=== PATIENT | female | born 1970 | race Caucasian/White ===

== ENCOUNTER 2021-05-04 00:48 | Day surgery (SDC) | payer OTHER, SELFPAY ==
[2021-04-20 14:18] VITALS: BMI 34.8
--- NOTE | 2021-05-03 13:58 | PM.HPGS ---
History of Present Illness History of Present Illness Consent: Risks, benefits, and alternatives have been discussed and questions answered. Patient agrees to proceed with procedure. Chief complaint: neoplasm screening Narrative: Tejal Corona is a 51 year old female referred for colon cancer screening Review of Systems Review of Systems: All systems reviewed & are unremarkable except as noted in HPI and below PMFSH Past Medical History Medical History COVID-19 Marital dysfunction Obesity (BMI 30.0-34.9) Surgical History Surgical History H/O lumpectomy 2017 History of right hip replacement 2011 Family History Family History Father Hypertension Family history of elevated blood lipids Family history of pancreatic cancer Patient's father is , Onset Age: 53 Mother Hypertension Family history of arthritis Social History Social History Smoking packs per day: 0.5 Smoking cigarettes per day: 10.0 Years smoked: 30 Smoking pack-years: 15.00 Smoking status: Current every day smoker Tobacco type: cigarettes Alcohol intake: current Living arrangements: with family Spiritual care concerns: No Meds Home Medications and Allergies Home Medications Medication Instructions Recorded Confirmed Type cholecalciferol (vitamin D3) 50 2,000 unit PO DAILY 08/19/19 05/04/21 History mcg (2,000 unit) tablet meloxicam 15 mg tablet 15 mg PO DAILY #90 tablet 08/21/20 05/04/21 Rx anastrozole 1 mg tablet 1 mg PO DAILY 11/03/20 05/04/21 History escitalopram oxalate 20 mg tablet 20 mg PO DAILY #90 tablet 02/19/21 05/04/21 Rx biotin 5,000 mcg SUBLINGUAL DAILY 04/20/21 05/04/21 History melatonin 5 mg PO HS PRN 04/20/21 05/04/21 History Allergies Allergy/AdvReac Type Severity Reaction Status Date / Time No Known Allergies Allergy Verified 05/04/21 09:06 Exam Resp: Auscultation: clear to auscultation bilaterally Cardio: Rate: regular rate Rhythm: regular rhythm GI: GI Palp: Yes Soft to palpation and No Tenderness to palpation present (GI) Assessment and Plan Assessment and plan (1) Colon cancer screening: Code(s): Z12.11 - Encounter for screening for malignant neoplasm of colon Status: Acute Assessment and Plan: Colonoscopy with possible biopsy or polypectomy or cautery or injection of substances.
[2021-05-04 09:08] VITALS: BP 118/80; PULSE 66; RESP 20; TEMP 36.2; O2SAT 98
[2021-05-04] MEDS: LACTATED RINGERS 1,000 ML 150 ML IV CONT (09:19)
--- NOTE | 2021-05-04 09:37 | WPDANESEPPF ---
Anes - Initial Pre Proc Eval Procedure: Operation Date: 05/04/21 10:00 Proposed Procedures p Screening Colonoscopy - Rudi Richardson MD Date/Time: 05/04/21 09:37 Surgeon: Rudi Richardson MD Pre Op Diagnosis: neoplasm screening Patient Data Age: 51 Gender: F Height: 1.7 m Weight: 95 kg Last Vital Signs Temp 97.2 F L 05/04/21 09:08 Pulse 66 05/04/21 09:08 Resp 20 05/04/21 09:08 BP 118/80 05/04/21 09:08 Pulse Ox 98 05/04/21 09:08 Allergies Allergy/AdvReac Type Severity Reaction Status Date / Time No Known Allergies Allergy Verified 05/04/21 09:06 Home Medications Medication Instructions Recorded Confirmed Type cholecalciferol (vitamin D3) 50 2,000 unit PO DAILY 08/19/19 05/04/21 History mcg (2,000 unit) tablet meloxicam 15 mg tablet 15 mg PO DAILY #90 tablet 08/21/20 05/04/21 Rx anastrozole 1 mg tablet 1 mg PO DAILY 11/03/20 05/04/21 History escitalopram oxalate 20 mg tablet 20 mg PO DAILY #90 tablet 02/19/21 05/04/21 Rx biotin 5,000 mcg SUBLINGUAL DAILY 04/20/21 05/04/21 History melatonin 5 mg PO HS PRN 04/20/21 05/04/21 History Patient hx anesthesia problems: none Family hx anesthesia problems: none Results Review: All pre-operative results and documents have been reviewed as part of the pre-operative evaluation. [facility] Past Medical History Medical History COVID-19 Marital dysfunction Obesity (BMI 30.0-34.9) Surgical History Surgical History H/O lumpectomy 2017 History of right hip replacement 2011 Family History Family History Father Hypertension Family history of elevated blood lipids Family history of pancreatic cancer Patient's father is , Onset Age: 53 Mother Hypertension Family history of arthritis Social History Social History Smoking packs per day: 0.5 Smoking cigarettes per day: 10.0 Years smoked: 30 Smoking pack-years: 15.00 Smoking status: Current every day smoker Tobacco type: cigarettes Alcohol intake: current Living arrangements: with family Spiritual care concerns: No Anes - Eval Final PreProcedure Day of Procedure 05/04/21 09:37 Patient weight: obese Heart: regular rate and rhythm Lungs: clear to auscultation Airway: Mallampati scale class II Neurological: alert and oriented Last oral intake: >/= 8 hours ASA classification: III Emergent: no Anesthetic plan: proceed Anesthesia type and monitoring: general GIVS and standard monitoring Results Review: All pre-operative results and documents have been reviewed as part of the pre-operative evaluation. Informed Consent: The patient's anesthetic plan and its attendant risks and benefits were discussed with the patient/family/POA. Questions were solicited and answers provided to the satisfaction of the patient/family/POA.
[2021-05-04 10:08] VITALS: BP 106/58; PULSE 62; RESP 17; O2SAT 99
[2021-05-04 10:18] VITALS: BP 120/68; PULSE 56; RESP 14; O2SAT 100
[2021-05-04 10:28] VITALS: BP 125/79; PULSE 58; RESP 18; O2SAT 100
== END 2021-05-04 10:53 | disposition home or self-care (01) ==
PROVIDERS: PCP Family Medicine; Visit Provider Internal Medicine Gastroenterology
PROC: 0DJD8ZZ Inspection of Lower Intestinal Tract, Via Natural or Artificial Opening Endoscopic (ICD-10-PCS; CPT 45378; principal; 2021-05-04 10:00)
DX: Z12.11 Encounter for screening for malignant neoplasm of colon (principal); K64.4 Residual hemorrhoidal skin tags; K64.8 Other hemorrhoids; K57.30 Diverticulosis of large intestine without perforation or abscess without bleeding; Z86.16 Personal history of COVID-19; F17.210 Nicotine dependence, cigarettes, uncomplicated; E66.9 Obesity, unspecified; Z68.32 Body mass index [BMI] 32.0-32.9, adult
CPT/HCPCS: 45378; J2704; J7120

== ENCOUNTER 2022-11-04 06:44 | Day surgery (SDC) | payer OTHER, SELFPAY ==
[2022-10-15 11:09] VITALS: BMI 31.0
[2022-10-22 09:03] VITALS: BMI 31.4
--- NOTE | 2022-11-04 06:54 | PM.HPGS ---
History of Present Illness History of Present Illness Consent: Risks, benefits, and alternatives have been discussed and questions answered. Patient agrees to proceed with procedure. Chief complaint: Esophageal Obstruction Narrative: Tejal Corona is a 52 year old female With increasing dysphagia over the past few years. Solid food will get caught usually the 1st bite of a meal. She will need to wait to let it pass or sometimes vomit it back up. She denies having chronic heartburn. Her weight is stable Review of Systems Review of Systems: All systems reviewed & are unremarkable except as noted in HPI and below PMFSH Past Medical History Medical History COVID-19 Diabetes mellitus type 2, uncontrolled Esophageal stricture Generalized anxiety disorder HTN (hypertension), benign Marital dysfunction Mixed hyperlipidemia Nicotine dependence, unspecified, uncomplicated Obesity (BMI 30.0-34.9) Surgical History Surgical History H/O lumpectomy 2017 History of right hip replacement 2011 Family History Family History Father Hypertension Family history of elevated blood lipids Family history of pancreatic cancer Patient's father is , Onset Age: 53 Mother Hypertension Family history of arthritis Social History Social History Smoking packs per day: 0.5 Smoking cigarettes per day: 10.0 Years smoked: 30 Smoking pack-years: 15.00 Smoking status: Current every day smoker Tobacco type: cigarettes Alcohol intake: current Drinks per week: 2 Substance use: never Substance use type: does not use Lack of Transportation: No Lack of Food: Never True Current Housing: I Have Housing Concerned About Future Housing: No Difficulty Paying Gas/Electric Bills: No Difficulty Paying for Meds: No Currently Unemployed: No Education: Bachelor's Degree Difficulty w/ Childcare or Family Care: No Living arrangements: with family Spiritual care concerns: No Meds Home Medications and Allergies Home Medications Medication Instructions Recorded Confirmed Type cholecalciferol (vitamin D3) 50 2,000 unit PO HS 08/19/19 10/22/22 History mcg (2,000 unit) tablet anastrozole 1 mg tablet 1 mg PO HS 11/03/20 10/22/22 History escitalopram oxalate 20 mg tablet See Rx Instructions .Route 11/15/21 10/22/22 Rx .COMPLEX #90 tabs albuterol sulfate 90 mcg/actuation 2 inh inhalation Q4H PRN shortness 06/04/22 10/22/22 Rx aerosol inhaler (ProAir HFA) of breath or wheezing #8.5 grams atorvastatin 10 mg tablet 10 mg PO HS 10/22/22 10/22/22 History meloxicam 15 mg tablet 15 mg PO HS 10/22/22 10/22/22 History metformin 500 mg tablet,extended 500 mg PO HS 10/22/22 10/22/22 History release 24hr triamcinolone acetonide 0.1 % 1 applic topical TID PRN Rash 10/22/22 10/22/22 History topical cream Allergies Allergy/AdvReac Type Severity Reaction Status Date / Time No Known Allergies Allergy Verified 11/04/22 07:15 Exam Const: General: alert Orientation/consciousness: patient oriented x3 Resp: Auscultation: clear to auscultation bilaterally Cardio: Rhythm: regular rhythm GI: GI Palp: Yes Soft to palpation and No Tenderness to palpation present (GI) Neuro: General: patient oriented x3 Assessment and Plan Assessment and plan (1) Dysphagia: Code(s): R13.10 - Dysphagia, unspecified Status: Acute Assessment and Plan: EGD with possible biopsy or dilatation or cautery.
[2022-11-04 07:17] VITALS: BP 146/92; PULSE 64; RESP 16; TEMP 36.5; O2SAT 99
--- NOTE | 2022-11-04 07:19 | WPDANESEPPF ---
Anes - Initial Pre Proc Eval Procedure: Operation Date: 11/04/22 08:30 Proposed Procedures p Esophagogastroduodenoscopy - Rudi Richardson MD Date/Time: 11/04/22 07:19 Surgeon: Rudi Richardson MD Pre Op Diagnosis: Esophageal Obstruction Patient Data Age: 52 Gender: F Height: 1.7 m Weight: 92.2 kg Last Vital Signs Temp 36.5 C 11/04/22 07:17 Pulse 64 11/04/22 07:17 Resp 16 11/04/22 07:17 BP 146/92 H 11/04/22 07:17 Pulse Ox 99 11/04/22 07:17 O2 Del Method Room Air 11/04/22 07:17 Allergies Allergy/AdvReac Type Severity Reaction Status Date / Time No Known Allergies Allergy Verified 11/04/22 07:15 Home Medications Medication Instructions Recorded Confirmed Type cholecalciferol (vitamin D3) 50 2,000 unit PO HS 08/19/19 11/04/22 History mcg (2,000 unit) tablet anastrozole 1 mg tablet 1 mg PO HS 11/03/20 11/04/22 History escitalopram oxalate 20 mg tablet See Rx Instructions .Route 11/15/21 11/04/22 Rx .COMPLEX #90 tabs albuterol sulfate 90 mcg/actuation 2 inh inhalation Q4H PRN shortness 06/04/22 11/04/22 Rx aerosol inhaler (ProAir HFA) of breath or wheezing #8.5 grams atorvastatin 10 mg tablet 10 mg PO HS 10/22/22 11/04/22 History meloxicam 15 mg tablet 15 mg PO HS 10/22/22 11/04/22 History metformin 500 mg tablet,extended 500 mg PO HS 10/22/22 11/04/22 History release 24hr triamcinolone acetonide 0.1 % 1 applic topical TID PRN Rash 10/22/22 11/04/22 History topical cream Patient hx anesthesia problems: none Family hx anesthesia problems: none Results Review: All pre-operative results and documents have been reviewed as part of the pre-operative evaluation. [facility] Past Medical History Medical History (Updated 11/04/22 @ 07:20 by Sourav Pruett MD) COVID-19 Diabetes mellitus type 2, uncontrolled Esophageal stricture Generalized anxiety disorder HTN (hypertension), benign Marital dysfunction Mixed hyperlipidemia Nicotine dependence, unspecified, uncomplicated Obesity (BMI 30.0-34.9) Surgical History Surgical History H/O lumpectomy 2017 History of right hip replacement 2011 Family History Family History Father Hypertension Family history of elevated blood lipids Family history of pancreatic cancer Patient's father is , Onset Age: 53 Mother Hypertension Family history of arthritis Social History Social History Smoking packs per day: 0.5 Smoking cigarettes per day: 10.0 Years smoked: 30 Smoking pack-years: 15.00 Smoking status: Current every day smoker Tobacco type: cigarettes Alcohol intake: current Drinks per week: 2 Substance use: never Substance use type: does not use Lack of Transportation: No Lack of Food: Never True Current Housing: I Have Housing Concerned About Future Housing: No Difficulty Paying Gas/Electric Bills: No Difficulty Paying for Meds: No Currently Unemployed: No Education: Bachelor's Degree Difficulty w/ Childcare or Family Care: No Living arrangements: with family Spiritual care concerns: No Anes - Eval Final PreProcedure Day of Procedure 11/04/22 07:19 Patient weight: obese Heart: regular rate and rhythm Lungs: clear to auscultation Airway: Mallampati scale class II Neurological: alert and oriented Last oral intake: >/= 8 hours ASA classification: III Emergent: no Anesthetic plan: proceed Anesthesia type and monitoring: general GIVS and standard monitoring Results Review: All pre-operative results and documents have been reviewed as part of the pre-operative evaluation. Informed Consent: The patient's anesthetic plan and its attendant risks and benefits were discussed with the patient/family/POA. Questions were solicited and answers provided to the satisfaction of the p
[2022-11-04 07:20] LABS: Glucose Point of Care 138 mg/dl (65-105)
[2022-11-04] MEDS: LACTATED RINGERS 1,000 ML 150 ML IV CONT (07:21)
[2022-11-04 08:44] VITALS: BP 141/76; PULSE 72; RESP 14; O2SAT 97
[2022-11-04 08:54] VITALS: BP 131/94; PULSE 68; RESP 16; O2SAT 99
[2022-11-04 09:04] VITALS: BP 150/76; PULSE 66; RESP 18; O2SAT 100
--- NOTE | 2022-11-04 12:08 | WPDANESPN ---
Anes - Prog Note Post-Op Date/Time: 11/04/22 12:08 Cardiovascular status: normal Respiratory status: normal Airway patency: baseline Mental status: baseline Post-Op hydration status: normal Vital Signs: Last Vital Signs Temp 36.5 C 11/04/22 07:17 Pulse 66 11/04/22 09:04 Resp 18 11/04/22 09:04 BP 150/76 H 11/04/22 09:04 Pulse Ox 100 11/04/22 09:04 O2 Del Method Room Air 11/04/22 09:04 Pain Score (VAS): 0 I/O: Intake & Output 11/03/22 11/04/22 11/04/22 23:59 07:59 15:59 Intake Total 640 Balance 640 11/04/22 07:17 POC Capillary Glucose 138 H Post-procedural complaints: none Patient Feedback: Patient satisfied with anesthetic care.
== END 2022-11-04 09:23 | disposition home or self-care (01) ==
PROVIDERS: PCP Family Medicine; Visit Provider Internal Medicine Gastroenterology
PROC: 0DJ08ZZ Inspection of Upper Intestinal Tract, Via Natural or Artificial Opening Endoscopic (ICD-10-PCS; CPT 43235; principal; 2022-11-04 08:30)
DX: R13.10 Dysphagia, unspecified (principal)
CPT/HCPCS: 43249; 43239

== ENCOUNTER 2022-11-04 08:00 | Outpatient (NON) | payer OTHER, SELFPAY | END 2022-11-04 08:01 | disposition home or self-care (01) | LOC: ANHLAB 11-05 07:23 | PROVIDERS: PCP Family Medicine; Visit Provider Family Medicine | DX: R13.10 Dysphagia, unspecified (principal); K22.10 Ulcer of esophagus without bleeding; K22.2 Esophageal obstruction | CPT/HCPCS: 88305; 88312; 88342 ==

== ENCOUNTER 2025-05-02 13:55 | Emergency (ER) | payer BC, SELFPAY ==
--- NOTE | ~2025-05-02 | XR_ITS ---
EXAMINATION: [id number], 05/02/2025 14:28 CDT HISTORY: right rib pain, no inj, lumpectomy and port 2017, pain x 1 w COMPARISON: No comparisons available. Findings: No acute fracture or malalignment. No significant degenerative changes. Soft tissues unremarkable. Impression: No acute fracture or malalignment. Reviewed, dictated and finalized at location P. Impression: No acute fracture or malalignment.
--- NOTE | 2025-05-02 13:59 | ED_ITS ---
HPI - Back Pain/Injury General Chief Complaint: Back Pain/Injury Stated Complaint: back pain Source: patient and RN notes reviewed Mode of arrival: ambulatory Limitations: no limitations History of Present Illness HPI Narrative: Patient is a 55-year-old female who presents to the [facility] with complaints of right posterior rib pain. She states that the pain has been present for the past week and half. She states that the pain started after she was helping a friend will rearrange her pantry. She cannot recall specific injury to the area. She states that after helping her friend, she got into her truck and noted the pain. She states that the pain is only present with specific positioning and movement. It is tender upon palpation. She denies difficulty breathing but states that the pain takes her breath away at times. She denies any chest pain. Denies any dizziness or nausea. Denies numbness. Related Data Home Medications ?Medication ?Instructions ?Recorded ?Confirmed ?Last Taken ?Type cholecalciferol (vitamin D3) 50 2,000 unit PO HS 08/1901/13/25 10/21/22 History mcg (2,000 unit) tablet dapagliflozin propanediol 10 mg mg 05/02/25 Unknown H istory tablet (Farxiga) Allergies Allergy/AdvReac Type Severity Reaction Status Date / Time No Known Allergies Allergy Verified 05/02/25 13:58 Review of Systems Review of Systems: CONSTITUTIONAL: Denies fever, chills, or sweats. EYES: Denies visual changes, redness, or discharge. ENT: Denies otalgia and sore throat CARDIOVASCULAR: Denies chest pain, palpitations, or edema. RESPIRATORY: Denies cough or dyspnea. GASTROINTESTINAL: Denies abdominal pain, nausea, vomiting, or diarrhea. GENITOURINARY: Denies dysuria or hematuria. SKIN: Denies rash or itching. MUSCULOSKELETAL: Reports right posterior rib pain. NEUROLOGIC: Denies headache, numbness, or weakness. Pertinent positives per HPI. [facility] Past Medical History Medical History Ulcer, esophagus Mixed hyperlipidemia Esophageal stricture HTN (hypertension), benign Diabetes mellitus type 2, uncontrolled COVID-19 Obesity (BMI 30.0-34.9) Marital dysfunction Generalized anxiety disorder Nicotine dependence, unspecified, uncomplicated Surgical History Surgical History H/O lumpectomy 2017 History of right hip replacement 2012 Family History Family History Father Hypertension Family history of elevated blood lipids Family history of pancreatic cancer Patient's father is , Onset Age: 53 Mother Hypertension Family history of arthritis Social History Social History Smoking packs per day: 0.5 Smoking cigarettes per day: 10.0 Years smoked: 30 Smoking pack-years: 15.00 Smoking status: Current every day smoker Tobacco type: cigarettes Alcohol intake: current Drinks per week: 2 Substance use: never Substance use type: does not use Lack of Transportation: No Lack of Food: Never True Current Housing: I Have Housing Concerned About Future Housing: No Difficulty Paying Gas/Electric Bills: No Difficulty Paying for Meds: No Currently Unemployed: No Education: Bachelor's Degree Difficulty w/ Childcare or Family Care: No Living arrangements: with family Spiritual care concerns: No Comments At the time of my signature, I reviewed and agree with the nursing past medical, surgical, social, and family history. There is no relevant family history pertinent to the patient complaint. Exam Narrative: GENERAL: This is a well-nourished, well-developed patient, in no apparent distress. HEAD: normocephalic, atraumatic. EYES: PERRL. Sclera clear/white. Vision is grossly intact. EARS: External ears normal, auditory canals clear and without drainage, TMs normal without perforation. Hearing grossly intact. NOSE: External nose normal with no obvious nasal discharge, nares without redness, no rhinorrhea. THROAT: Mucous membranes moist, posterior pharynx clear. NECK: Neck supple, non-tender without lymphadenopathy, masses or thyromegaly. CARDIOVASCULAR: Regular rate and rhythm without murmurs, gallops, or rubs. RESPIRATORY: Clear to auscultation. Breath sounds equal bilaterally. No wheezes, rales, or rhonchi. GASTROINTESTINAL: Abdomen soft, non-tender, nondistended. Bowel sounds are acti ve. No hepato-splenomegaly, or palpable masses. No guarding. SKIN: warm, intact with no suspicious lesions or rash, good texture and turgor. NEURO: awake, alert, and oriented to person, place and time. There were no obvious focal neurologic abnormalities. EXTREMITIES: No clubbing, cyanosis, or edema. No joint tenderness, effusion, or edema noted. BACK: Right posterior rib tenderness. Course Course Level of Care: Express Care Visit Vital Signs Vital signs: Vital Signs Temperature 97.8 F 05/02/25 14:02 Pulse Rate 93 05/02/25 14:02 Respiratory Rate 16 05/02/25 14:02 Blood Pressure 131/82 05/02/25 14:02 Pulse Oximetry 100 05/02/25 14:02 Temperature 97.8 F 05/02/25 14:02 Pulse Rate 93 05/02/25 14:02 Respiratory Rate 16 05/02/25 14:02 Blood Pressure 131/82 05/02/25 14:02 Pulse Oximetry 100 05/02/25 14:02 Reviewed MDM - Back Pain/Injury MDM Narrative Medical decision making narrative: Use the RICE method at home. Take medication as prescribed. If symptoms persist in 1 week after conservative treatment, follow-up with specialist. If symptoms worsen, go to the ED immediately. Differential Diagnosis Differential diagnosis: Likely lumbar radiculopathy, strain of lumbar region, thoracic back pain and other ( Right rib fracture, ureteral stone, renal colic) Imaging Data Attestation: I personally reviewed and interpreted this imaging study as follows: Radiologist's impression: [facility] [address] [place] [address] XRay Report Signed Patient: Tejal Corona : 1970 MR#: [id number] Age: 55 Acct:[id number] [facility] ADM Date: 05/02/[address]: Ordering Physician: Farida Drake APRN Date of Service: 05/02/25 Procedure(s): XR ribs RT w PA CXR Accession Number(s): [id number] cc: Farida Drake APRN; Jordan Martinez MD~ EXAMINATION: [id number], 05/02/2025 14:28 CDT HISTORY: right rib pain, no inj, lumpectomy and port 2017, pain x 1 w COMPARISON: No comparisons available. Findings: No acute fracture or malalignment. No significant degenerative changes. Soft tissues unremarkable. Impression: No acute fracture or malalignment. Reviewed, dictated and finalized at location P. Please be advised this is a medical document. It is intended for [id number] communication. It is written in medical language and may contain unfamiliar abbreviations or verbiage. Medical documents are intended to carry relevant information, facts as evident, and the clinical opinion of the practitioner at the time of the encounter. This report may have been done utilizing a voice recognition system. Attempts have been made to correct errors. However, there may be uncorrected grammatical, spelling, and recognition errors present. The file time of this note does not necessarily represent the time of service. Dictated By: Bruce Mackay MD 05/02/25 1456 Signed By: <Electronically signed by Bruce Mackay MD in OV> 05/02/25 1457 Critical Care Time Critical Care Time Critical Care Time: No Discharge Plan Discharge Clinical Impression: Acute thoracic myofascial strain Patient Disposition: Home Condition: Stable Instructions: P.R.I.C.E. Treatment (ED), Thoracic Back Strain (ED) Additional Instructions: Use the RICE method at home. Take medication as prescribed. If symptoms persist in 1 week after conservative treatment, follow-up with specialist. If symptoms worsen, go to the ED immediately. Patient Language: Somali Prescriptions: New dexamethasone 4 mg tablet 4 mg PO DAILY 5 Days Qty: 5 0RF naproxen 500 mg tablet 500 mg PO BID PRN (Reason: pain) Qty: 20 0RF cyclobenzaprine 10 mg tablet 10 mg PO HS PRN (Reason: muscle spasm) Qty: 20 0RF No Action dapagliflozin propanediol [Farxiga] 10 mg tablet cholecalciferol (vitamin D3) 2,000 unit tablet 2,000 unit PO HS alprazolam [Xanax] 0.25 mg tablet 0.25 mg PO TID PRN (Reason: anxiety) Qty: 30 1RF icosapent ethyl [Vascepa] 1 gram capsule 2 g PO BID Qty: 360 3RF metformin 500 mg tablet 500 mg PO BIDWMEAL Qty: 180 3RF escitalopram oxalate 20 mg tablet 20 mg PO DAILY Qty: 30 0RF Rx Instructions: LAST REFILL UNTIL SEEN Jardiance 25 mg tablet 25 mg PO DAILY Qty: 90 3RF pantoprazole 40 mg tablet,delayed release (DR/EC) 40 mg PO QAM Qty: 90 3RF atorvastatin 10 mg tablet 10 mg PO HS Qty: 90 1RF Follow-up/Referrals: Jordan Martinez MD [Primary Care Provider, Family Practice] Time of Disposition: 15:03
[2025-05-02 14:02] VITALS: BP 131/82; PULSE 93; RESP 16; TEMP 36.6; O2SAT 100
[2025-05-02] MEDS: dexAMETHasone SOD PHOS INJ 10 MG/ML 1 ML VIAL 8 MG IM (14:25)
[2025-05-02] MEDS: KETOROLAC (*BKC) 60 MG/2 ML VIAL IM (14:26)
== END 2025-05-02 15:10 | disposition home or self-care (01) ==
PROVIDERS: Emergency Provider Nurse Practitioner; PCP Family Medicine
DX: S29.012A Strain of muscle and tendon of back wall of thorax, initial encounter (principal); X58.XXXA Exposure to other specified factors, initial encounter; F17.210 Nicotine dependence, cigarettes, uncomplicated; I10 Essential (primary) hypertension; E11.9 Type 2 diabetes mellitus without complications; Z79.84 Long term (current) use of oral hypoglycemic drugs; E78.2 Mixed hyperlipidemia; E66.9 Obesity, unspecified; Z68.28 Body mass index [BMI] 28.0-28.9, adult; F41.1 Generalized anxiety disorder; Z96.641 Presence of right artificial hip joint; Z86.16 Personal history of COVID-19
CPT/HCPCS: 71101; 96372; 99214; G0463; J1100; J1885